=== PATIENT | female | born 1965 | race Caucasian/White ===

== ENCOUNTER 2021-11-21 16:49 | Emergency (ER) | payer BC ==
[2021-11-21] MEDS ORDERED: Famotidine 20 MG TAB ONE (18:10)
[2021-11-21] MEDS ORDERED: Dexamethasone 4 mg/ml Vial ONE (18:10)
== END 2021-11-21 18:24 | disposition home or self-care (01) ==
LOC: ERS 16:49
DX: L50.9 Urticaria, unspecified (principal)
CPT/HCPCS: 96372; 99283; J1100